=== PATIENT | male | born 1975 | race Caucasian/White ===

== ENCOUNTER 2022-09-09 23:28 | Emergency (ER) | payer SELFPAY ==
[2022-09-09] MEDS ORDERED: methylPREDNISolone Acetate 40 mg/ml Vial ONE (23:48)
== END 2022-09-10 00:40 | disposition home or self-care (01) ==
LOC: NAV ERS 23:28
DX: U07.1 COVID-19 (principal); J20.8 Acute bronchitis due to other specified organisms; F17.290 Nicotine dependence, other tobacco product, uncomplicated
CPT/HCPCS: 87804; 96372; 99283; J1030; U0003; U0005